=== PATIENT | female | born 1980 ===

== ENCOUNTER 2020-02-29 23:43 | Emergency (ER) | payer SELFPAY ==
[2020-03-01 00:43] VITALS: BP 117/85
[2020-03-01] MEDS ORDERED: IPRATROPIUM/ALBUTEROL SULFATE 3 ML AMPUL.NEB IH ONE (00:49)
[2020-03-01] MEDS ORDERED: ALBUTEROL 2.5 MG/3 ML NEBU IH ONE (00:49)
[2020-03-01] MEDS ORDERED: predniSONE 20 MG TAB PO ONE (00:50)
[2020-03-01] MEDS ORDERED: IBUPROFEN 600 MG TAB PO ONE (00:50)
--- NOTE | 2020-03-01 01:16 | XRay Report ---
CHEST 1 VIEW 0115 INDICATION / CLINICAL INFORMATION: cough COMPARISON: None available. FINDINGS: SUPPORT DEVICES: None HEART / MEDIASTINUM: No significant abnormality. LUNGS / PLEURA: Mild probable scarring is seen in the left lateral base. No definite acute pulmonary infiltrates are noted. No pneumothorax. ADDITIONAL FINDINGS: No significant additional findings. IMPRESSION: No significant acute abnormality Signer Name: Otis Gonzales MD Signed: 03/01/2020 1:12 AM Workstation Name: [id number]
--- NOTE | 2020-03-01 02:18 | Emergency Department Report ---
- General Chief Complaint: Chest Pain Stated Complaint: SORE THROAT/CHEST PAIN/RAIMUNDO Source: patient Mode of arrival: Ambulatory Limitations: No Limitations - History of Present Illness Initial Comments: Patient is a 39-year-old female with a history of tobacco abuse who presents to the ED with complaint of acute onset persistent nasal and sinus congestion, frontal sinus pressure and sore throat, hoarseness, mild dysphonia, persistent dry cough with pleuritic chest wall pain for the last 1 week. Patient states that her symptoms have worsened in the last 2 days. Patient states that she lost her voice in the last 24 hours such that she is unable to speak because of hoarseness and sore throat. Patient denies dysphagia, nausea, vomiting, diarrhea, abdominal pain, shortness of breath, fever, chills, dysuria, urinary frequency and urgency, headache, hearing loss, change in vision or neck pain. MD Complaint: cough, sore throat, rhinorrhea, nasal congestion, sinus pain -: Sudden, week(s) (1) Severity: severe Severity scale (0 -10): 7 Quality: sharp, aching Consistency: constant Improves With: nothing Worsens With: nothing Context: sick contacts Associated Symptoms: denies other symptoms, headache, rhinorrhea, nasal congestion, sore throat, cough, chest pain. denies: fever, chills, myalgias, diaphoresis, stiff neck, shortness of breath, abdominal pain, nausea, vomiting, diarrhea, dysuria, rash, confusion, right sweats, weight loss, hoarseness, ear pain, other Treatments Prior to Arrival: none - Related Data Previous Rx's Medication Instructions Recorded Last Taken Type Albuterol Sulfate [Proventil Hfa] 1 - 2 puff IH Q6H PRN #1 hfa.aer.ad 03/01/20 Unknown Rx Azithromycin [Zithromax Z-THALIA] 250 mg PO DAILY #6 tablet 03/01/20 Unknown Rx Benzonatate [Tessalon Perles] 100 mg PO Q8HR #30 capsule 03/01/20 Unknown Rx Ibuprofen [Motrin] 800 mg PO Q8HR PRN #24 tablet 03/01/20 Unknown Rx methylPREDNISolone [Medrol 4MG 4 mg PO DAILY #21 tab.ds.pk 03/01/20 Unknown Rx DOSEPAK (21 tabs)] Allergies Allergy/AdvReac Type Severity Reaction Status Date / Time No Known Allergies Allergy Unverified 03/01/20 00:40 ED Review of Systems ROS: Stated complaint: SORE THROAT/CHEST PAIN/RAIMUNDO Other details as noted in HPI Constitutional: denies: chills, fever Eyes: denies: eye pain, eye discharge, vision change ENT: throat pain, congestion, other (Hoarseness and dysphonia). denies: ear pain Respiratory: cough (Dry cough with wheezing), wheezing. denies: shortness of breath Cardiovascular: chest pain (Pleuritic chest wall pain with cough). denies: palpitations Endocrine: no symptoms reported Gastrointestinal: denies: abdominal pain, nausea, vomiting, diarrhea Genitourinary: denies: urgency, dysuria, discharge Musculoskeletal: denies: back pain, joint swelling, arthralgia Skin: denies: rash, lesions Neurological: denies: headache, weakness, paresthesias Psychiatric: denies: anxiety, depression Hematological/Lymphatic: denies: easy bleeding, easy bruising ED Past Medical Hx - Past Medical History Previous Medical History?: Yes Hx Hypertension: Yes Additional medical history: Anemia, Hypothyroid - Surgical History Past Surgical History?: No - Social History Smoking Status: Current Every Day Smoker - Medications Home Medications: Home Medications Medication Instructions Recorded Confirmed Last Taken Type Albuterol Sulfate [Proventil Hfa] 1 - 2 puff IH Q6H PRN #1 hfa.aer.ad 03/01/20 Unknown Rx Azithromycin [Zithromax Z-THALIA] 250 mg PO DAILY #6 tablet 03/01/20 Unknown Rx Benzonatate [Tessalon Perles] 100 mg PO Q8HR #30 capsule 03/01/20 Unknown Rx Ibuprofen [Motrin] 800 mg PO Q8HR PRN #24 tablet 03/01/20 Unknown Rx methylPREDNISolone [Medrol 4MG 4 mg PO DAILY #21 tab.ds.pk 03/01/20 Unknown Rx DOSEPAK (21 tabs)] ED Physical Exam - General Limitations: No Limitations General appearance: alert, in no apparent distress - Head Head exam: Present: atraumatic, normocephalic, normal inspection - Eye Eye exam: Present: normal appearance, PERRL, EOMI Pupils: Present: normal accommodation - ENT ENT exam: Present: mucous membranes moist, TM's normal bilaterally, normal external ear exam, other (Mild erythematous oropharynx; grossly congested nasal passages) - Neck Neck exam: Present: normal inspection, full ROM, lymphadenopathy - Respiratory Respiratory exam: Present: wheezes (Mildly diffuse coarse wheezes throughout). Absent: respiratory distress, rales, rhonchi, chest wall tenderness, accessory muscle use, decreased breath sounds - Cardiovascular Cardiovascular Exam: Present: regular rate, normal rhythm, normal heart sounds. Absent: systolic murmur, diastolic murmur, rubs, gallop - GI/Abdominal GI/Abdominal exam: Present: soft, normal bowel sounds. Absent: tenderness, guarding, rebound, hyperactive bowel sounds, hypoactive bowel sounds, organomegaly - Extremities Exam Extremities exam: Present: normal inspection, full ROM, normal capillary refill - Back Exam Back exam: Present: normal inspection, full ROM. Absent: tenderness, CVA tenderness (R), CVA tenderness (L), muscle spasm, vertebral tenderness - Neurological Exam Neurological exam: Present: alert, oriented X3, CN II-XII intact, normal gait, reflexes normal - Psychiatric Psychiatric exam: Present: normal affect, normal mood - Skin Skin exam: Present: warm, dry, intact, normal color. Absent: rash ED Course Vital Signs 03/01/20 03/01/20 03/01/20 00:34 01:11 01:28 Temperature 98.7 F Pulse Rate 95 H Pulse Rate [ 96 H Bilateral] Respiratory 18 20 Rate Respiratory 20 Rate [Bilateral ] Blood Pressure 117/85 O2 Sat by Pulse 99 Oximetry ED Medical Decision Making - Radiology Data Radiology results: report reviewed, image reviewed Findings [facility] [address] [place] [address] XRay Report Signed Patient: SRINIVAS LOPEZ MR#: [id number] : 1980 Acct:[id number] Age/Sex: 39 / F ADM Date: 02/29/20 Loc: ED Attending Dr: Ordering Physician: CHOLO ONEAL Date of Service: 03/01/20 Procedure(s): XR chest 1V ap Accession Number(s): [id number] cc: CHOLO ONEAL Fluoro Time In Minutes: CHEST 1 VIEW 0115 INDICATION / CLINICAL INFORMATION: cough COMPARISON: None available. FINDINGS: SUPPORT DEVICES: None HEART / MEDIASTINUM: No significant abnormality. LUNGS / PLEURA: Mild probable scarring is seen in the left lateral base. No definite acute pulmonary infiltrates are noted. No pneumothorax. ADDITIONAL FINDINGS: No significant additional findings. IMPRESSION: No significant acute abnormality Signer Name: Otis Gonzales MD Signed: 03/01/2020 1:12 AM Workstation Name: [id number] Transcribed By: AMISH Dictated By: Otis Gonzales MD Electronically Authenticated By: Otis Gonzales MD Signed Date/Time: 03/01/20111 DD/ 0 TD/TT: - Medical Decision Making This is a 39-year-old female with a history of tobacco abuse who presents to the ED with complaint of acute onset persistent nasal and sinus congestion, frontal sinus pressure and sore throat, hoarseness, mild dysphonia, persistent dry cough with pleuritic chest wall pain for the last 1 week. Patient states that her symptoms have worsened in the last 2 days. Patient states that she lost her voice in the last 24 hours such that she is unable to speak because of hoarseness and sore throat. In the ED, patient is alert and oriented x3 and is not in any distress. Patient received DuoNeb treatment and steroids in the ED. On reevaluation, patient's wheezing resolved with medications. Chest x-ray shows no acute cardiopulmonary abnormalities or pneumonitis. Patient was therefore discharged home on medications and advised to follow-up with her primary care physician in 5 to 7 days for reevaluation or return to the ED immediately if symptoms get worse. - Differential Diagnosis Pharyngitis; tonsillitis; bronchitis; pneumonia; URI; laryngitis Critical care attestation.: If time is entered above; I have spent that time in minutes in the direct care of this critically ill patient, excluding procedure time. ED Disposition Clinical Impression: Acute upper respiratory infection Acute bronchitis Qualifiers: Bronchitis organism: other organism Qualified Code(s): J20.8 - Acute bronchitis due to other specified organisms Acute pharyngitis Qualifiers: Pharyngitis/tonsillitis etiology: unspecified etiology Qualified Code(s): J02.9 - Acute pharyngitis, unspecified Disposition: DC-01 TO HOME OR SELFCARE Is pt being admited?: No Does the pt Need Aspirin: No Condition: Stable Instructions: Acute Bronchitis (ED), Upper Respiratory Infection, Adult, [id number], Acute Bronchitis, Adult, [id number], Pharyngitis, [id number] Additional Instructions: Chest x-ray shows no acute cardiopulmonary abnormalities or pneumonitis. Therefore take medications with food, drink plenty of fluids and follow-up with your primary care physician in 5 to 7 days for reevaluation or return to the ED immediately if symptoms get worse. Prescriptions: methylPREDNISolone [Medrol 4MG DOSEPAK (21 tabs)] 4 mg PO DAILY #21 tab.ds.pk Ibuprofen [Motrin] 800 mg PO Q8HR PRN #24 tablet PRN Reason: Pain , Severe (7-10) Albuterol Sulfate [Proventil Hfa] 1 - 2 puff IH Q6H PRN #1 hfa.aer.ad PRN Reason: Wheezing Benzonatate [Tessalon Perles] 100 mg PO Q8HR #30 capsule Azithromycin [Zithromax Z-THALIA] 250 mg PO DAILY #6 tablet Referrals: CARMEN MCKINLEY MD [Staff Physician] - 3-5 Days Time of Disposition: 02:21 Print Language: WOLOF
== END 2020-03-01 02:34 | disposition home or self-care (01) ==
LOC: ED 23:43
DX: J06.9 Acute upper respiratory infection, unspecified (principal); J02.9 Acute pharyngitis, unspecified; J20.8 Acute bronchitis due to other specified organisms; I10 Essential (primary) hypertension; D64.9 Anemia, unspecified; E03.9 Hypothyroidism, unspecified; F17.200 Nicotine dependence, unspecified, uncomplicated; Z79.899 Other long term (current) drug therapy
CPT/HCPCS: 71045; 94640; 99283; J7512; 94644